=== PATIENT | female | born 1960 | race Caucasian/White ===

== ENCOUNTER 2017-11-22 16:19 | Emergency (ER) | payer OTHER ==
[~2017-11-22] VITALS: Ht 162.6 cm; Wt 90.3 kg
[~2017-11-22 16:19] MED LIST: ADAL40PEN INJ; GABA300 PO; HYDSUL200 PO; LISI20 PO; NORT25 PO; Nexium40 MG PO; Prednisone20 MG PO; RANI150 PO; Synthroid150 MCG PO
== END 2017-11-22 18:05 | disposition home or self-care (01) ==
LOC: ER 16:19
DX: S93.402A Sprain of unspecified ligament of left ankle, initial encounter (principal); I12.9 Hypertensive chronic kidney disease with stage 1 through stage 4 chronic kidney disease, or unspecified chronic kidney disease; N18.3 Chronic kidney disease, stage 3 (moderate); E03.9 Hypothyroidism, unspecified; Z88.8 Allergy status to other drugs, medicaments and biological substances; Z79.899 Other long term (current) drug therapy; X50.1XXA Overexertion from prolonged static or awkward postures, initial encounter
CPT/HCPCS: 73610

== ENCOUNTER 2019-02-13 06:49 | Day surgery (SDC) | payer OTHER ==
[~2019-02-13] VITALS: Ht 162.6 cm; Wt 97.1 kg
--- NOTE | 2019-02-13 10:07 | NUR ---
02/13/19 Elva Greene PT WAS MEDICATED WITH ORAL PAIN MEDS, 5/10 TOLERABLE PAIN. READY FOR DISCHARGE TEACHING.
== END 2019-02-13 10:30 | disposition home or self-care (01) ==
LOC: ORSCSDS 06:49
PROVIDERS: Podiatrist Foot & Ankle Surgery
PROC: 0QBL0ZZ Excision of Right Tarsal, Open Approach (ICD-10-PCS; principal; 2019-02-13 08:15)
PROC: 0LSN0ZZ Reposition Right Lower Leg Tendon, Open Approach (ICD-10-PCS; principal; 2019-02-13 08:15)
DX: M24.573 Contracture, unspecified ankle (principal); M76.61 Achilles tendinitis, right leg; I10 Essential (primary) hypertension; E03.9 Hypothyroidism, unspecified; E78.00 Pure hypercholesterolemia, unspecified; M79.7 Fibromyalgia; M06.9 Rheumatoid arthritis, unspecified; F41.8 Other specified anxiety disorders; M32.9 Systemic lupus erythematosus, unspecified; Z79.899 Other long term (current) drug therapy
CPT/HCPCS: C1713; J0690; J2250; J2704; J3010; J7120

== ENCOUNTER → 2019-04-06 | Outpatient (CLI) | payer OTHER ==
[2019-04-06 12:12] LABS: BODY FLUID RBC 0.008 M/mm3 (0-0); RBC Count, Synovial Fluid 8000 /mm3 (0-0); WBC Count, Synovial Fluid 3005 /mm3 (0-180)
[2019-04-06 12:21] LABS: Body Fluid Crystals NEG (NEGATIVE)
[2019-04-06 12:33] LABS: Appearance, Synovial Fluid Hazy (Clear); Color, Synovial Fluid Yellow (None-P Yel)
[2019-04-06 13:00] LABS: Lymphs, Synovial Fluid 57 % (0-15); Monocytes/Macrophages, Synovia 27 % (0-65); Neutrophils, Synovial Fluid 16 % (0-24)
== END | disposition home or self-care (01) ==
LOC: LAB 11:38 → LAB SHORT 11:38
PROVIDERS: Family Medicine
DX: M70.41 Prepatellar bursitis, right knee (principal)
CPT/HCPCS: 87070; 87075; 87205; 89051; 89060

== ENCOUNTER → 2019-04-20 | Outpatient (CLI) | payer OTHER ==
[2019-04-23 07:08] LABS: HPV 16 Negative (Negative); HPV 18 Positive (Negative); HPV OTHER HR TYPES Negative (Negative)
== END ==
LOC: LAB 12:05 → LAB SHORT 12:05
PROVIDERS: Registered Nurse Community Health
DX: Z12.4 Encounter for screening for malignant neoplasm of cervix (principal); N95.2 Postmenopausal atrophic vaginitis; L90.0 Lichen sclerosus et atrophicus; N90.5 Atrophy of vulva; N90.89 Other specified noninflammatory disorders of vulva and perineum
CPT/HCPCS: 87070; 87205; 87624; 87625; G0123

== ENCOUNTER → 2019-06-30 | Outpatient (CLI) | payer OTHER | LOC: LAB SHORT 08:02 → PLD 08:02 | DX: Z12.4 Encounter for screening for malignant neoplasm of cervix (principal); N84.1 Polyp of cervix uteri; R87.619 Unspecified abnormal cytological findings in specimens from cervix uteri; R87.610 Atypical squamous cells of undetermined significance on cytologic smear of cervix (ASC-US); Z78.0 Asymptomatic menopausal state | CPT/HCPCS: 88305 ==

== ENCOUNTER → 2020-07-07 | Outpatient (CLI) | payer OTHER ==
[~2020-07-07] MED LIST changes: +HYDMOR2 PO; +LEVSOD137 PO; +Percocet 5-3251 EACH PO; +XELJANZ5 MG PO
== END | disposition home or self-care (01) ==
LOC: LAB EV 17:07 → LAB SHORT 17:07
DX: L02.419 Cutaneous abscess of limb, unspecified (principal)
CPT/HCPCS: 87070; 87075; 87205

== ENCOUNTER → 2020-10-17 | Outpatient (CLI) | payer OTHER ==
[2020-10-18 09:25] LABS: Candida species (DNA Probe) Negative (NEGATIVE); G. vaginalis (DNA Probe) Negative (NEGATIVE); T. vaginalis (DNA Probe) Negative (NEGATIVE)
[2020-10-18 16:07] LABS: HPV 16 Negative (Negative); HPV 18 Negative (Negative); HPV OTHER HR TYPES Negative (Negative)
[2020-10-19 09:09] LABS: CHLAMYDIA BY NAA Negative (Negative); GONOCOCCUS BY NAA Negative (Negative); TRICH VAG BY NAA Negative (Negative)
== END | disposition home or self-care (01) ==
LOC: LAB 09:30 → LAB SHORT 09:30
PROVIDERS: Family Medicine
DX: Z01.419 Encounter for gynecological examination (general) (routine) without abnormal findings (principal)
CPT/HCPCS: 87480; 87491; 87510; 87591; 87624; 87660; 87661; G0123

== ENCOUNTER 2021-01-31 19:00 | Emergency (ER) | payer OTHER ==
[~2021-01-31] VITALS: Ht 162.6 cm; Wt 99.8 kg
[~2021-01-31 19:00] MED LIST changes: -HYDMOR2 PO; -LEVSOD137 PO; -Percocet 5-3251 EACH PO; -XELJANZ5 MG PO
[2021-01-31] MEDS ORDERED: XELJANZ5 MG PO (19:07)
[2021-01-31] MEDS ORDERED: LEVSOD137 PO (19:08)
[2021-02-01] MEDS ORDERED: Percocet 5-3251 EACH PO (00:28)
== END 2021-02-01 03:08 | disposition home or self-care (01) ==
LOC: ER 19:00
DX: S52.121A Displaced fracture of head of right radius, initial encounter for closed fracture (principal); S52.301A Unspecified fracture of shaft of right radius, initial encounter for closed fracture; S53.004A Unspecified dislocation of right radial head, initial encounter; I10 Essential (primary) hypertension; E03.9 Hypothyroidism, unspecified; E78.00 Pure hypercholesterolemia, unspecified; Z79.899 Other long term (current) drug therapy; W01.0XXA Fall on same level from slipping, tripping and stumbling without subsequent striking against object, initial encounter
CPT/HCPCS: 25520; 73070; 73090; 73100; 76000; 96361; 96361-59; 96374-59; 96375; 96375-59; 96376-59; 99152; 99284-25; A9270; J1170; J1885; J2060; J2405; J2704; J7030

== ENCOUNTER 2021-02-07 21:27 | Emergency (ER) | payer OTHER | END 2021-02-08 01:41 | disposition home or self-care (01) | LOC: ER 21:27 | DX: M79.601 Pain in right arm (principal); I12.9 Hypertensive chronic kidney disease with stage 1 through stage 4 chronic kidney disease, or unspecified chronic kidney disease; N18.9 Chronic kidney disease, unspecified; E78.00 Pure hypercholesterolemia, unspecified; E03.9 Hypothyroidism, unspecified; Z79.899 Other long term (current) drug therapy ==

== ENCOUNTER → 2021-06-28 | Outpatient (CLI) | payer OTHER ==
[~2021-06-28] MED LIST changes: +HYDMOR2 PO; +LEVSOD137 PO; +Percocet 5-3251 EACH PO; +XELJANZ5 MG PO
[2021-06-28 13:13] LABS: BASOPHILS ABSOLUTE AUTO 0.03 K/mm3 (0.00-0.23); BASOPHILS PERCENT AUTO 1 % (0-2); EOSINOPHILS ABSOLUTE AUTO 0.23 K/mm3 (0.00-0.68); EOSINOPHILS PERCENT AUTO 4 % (0-6); Hematocrit 38.5 % (33.0-51.0); Hemoglobin 12.8 g/dL (11.5-16.0); IMMATURE GRAN ABSOLUTE AUTO 0.03 K/mm3 (0.00-0.10); IMMATURE GRAN PERCENT AUTO 1 % (0-1); LYMPHOCYTES ABSOLUTE AUTO 1.12 K/mm3 (0.84-5.20); LYMPHOCYTES PERCENT AUTO 18 % (21-46); MONOCYTES ABSOLUTE AUTO 0.48 K/mm3 (0.16-1.47); MONOCYTES PERCENT AUTO 8 % (4-13); Mean Corpuscular HGB 31.2 pg (26.0-34.0); Mean Corpuscular HGB Conc 33.2 g/dL (31.5-36.5); Mean Corpuscular Volume 94 fL (80-100); Mean Platelet Volume 10.9 fL (9.1-12.4); NEUTROPHILS PERCENT AUTO 69 % (41-73); Platelet Count 220 K/mm3 (150-400); RDW Coefficient Variation 14.5 % (11.7-14.2); RDW Standard Deviation 49.6 fL (35.1-46.3); White Blood Cell Count 6.19 K/mm3 (4.00-11.30)
[2021-06-28 13:39] LABS: Bun/Creatinine Ratio 9.9 (12.0-20.0); Calcium, Blood 9.4 mg/dL (8.5-10.1); Creatinine, Blood 1.31 mg/dL (0.40-1.00); Potassium, Blood 4.1 mmol/L (3.5-5.5)
== END | disposition home or self-care (01) ==
LOC: LAB SHORT 12:24 → LAB 12:24
PROVIDERS: Internal Medicine Rheumatology; Nurse Practitioner Family
DX: M05.9 Rheumatoid arthritis with rheumatoid factor, unspecified (principal); E03.9 Hypothyroidism, unspecified; N18.30 Chronic kidney disease, stage 3 unspecified; R73.03 Prediabetes
CPT/HCPCS: 80048; 83036; 84443; 84450; 85025; 85651

== ENCOUNTER 2021-09-19 07:49 | Emergency (ER) | payer OTHER ==
[~2021-09-19] VITALS: Ht 162.6 cm; Wt 99.8 kg
[~2021-09-19 07:49] MED LIST changes: -GABA300 PO; +GABA400 PO; +XELJANZ XR11 MG PO; -XELJANZ5 MG PO
[2021-09-20] MEDS ORDERED: EUTHYROX175 MCG PO (03:05)
[2021-09-20] MEDS ORDERED: ATORVASTATIN CA20 MG PO (10:03)
== END 2021-09-19 10:09 | disposition home or self-care (01) ==
LOC: ER 07:49
DX: R10.11 Right upper quadrant pain (principal); E03.9 Hypothyroidism, unspecified; M06.9 Rheumatoid arthritis, unspecified; E78.00 Pure hypercholesterolemia, unspecified; I10 Essential (primary) hypertension; Z79.899 Other long term (current) drug therapy
CPT/HCPCS: 76705; 96374; 96375; 99284-25; A9270

== ENCOUNTER 2021-09-19 19:15 | Inpatient (IN) | payer OTHER ==
[~2021-09-19] VITALS: Ht 162.6 cm; Wt 99.8 kg
[2021-09-19 20:40] LABS: BASOPHILS ABSOLUTE AUTO 0.03 K/mm3 (0.00-0.23); BASOPHILS PERCENT AUTO 0 % (0-2); EOSINOPHILS ABSOLUTE AUTO 0.23 K/mm3 (0.00-0.68); EOSINOPHILS PERCENT AUTO 2 % (0-6); Hemoglobin 12.9 g/dL (11.5-16.0); IMMATURE GRAN ABSOLUTE AUTO 0.04 K/mm3 (0.00-0.10); IMMATURE GRAN PERCENT AUTO 0 % (0-1); LYMPHOCYTES ABSOLUTE AUTO 0.76 K/mm3 (0.84-5.20); LYMPHOCYTES PERCENT AUTO 8 % (21-46); MONOCYTES ABSOLUTE AUTO 1.08 K/mm3 (0.16-1.47); MONOCYTES PERCENT AUTO 11 % (4-13); Mean Corpuscular HGB 31.5 pg (26.0-34.0); Mean Corpuscular HGB Conc 34.9 g/dL (31.5-36.5); Mean Platelet Volume 10.5 fL (9.1-12.4); NEUTROPHILS ABSOLUTE AUTO 7.84 K/mm3 (1.96-9.15); NEUTROPHILS PERCENT AUTO 79 % (41-73); Platelet Count 156 K/mm3 (150-400); RDW Coefficient Variation 13.2 % (11.7-14.2); White Blood Cell Count 9.98 K/mm3 (4.00-11.30)
[2021-09-19 20:43] LABS: Mean Corpuscular Volume 90 fL (80-100)
[2021-09-19 21:32] LABS: Albumin, Blood 3.7 g/dL (3.4-5.0); Albumin/Globulin Ratio 0.9 (0.8-1.8); Bilirubin, Total 3.1 mg/dL (0.1-1.0); Bun/Creatinine Ratio 7.8 (12.0-20.0); Calcium, Blood 9.4 mg/dL (8.5-10.1); Creatinine, Blood 1.15 mg/dL (0.40-1.00); Globulin, Blood 3.9 g/dL (2.2-4.0); Potassium, Blood 3.2 mmol/L (3.5-5.5); Total Protein, Blood 7.6 g/dL (6.4-8.2)
--- NOTE | 2021-09-20 02:53 | NUR ---
RECEIVED PATIENT TO UNIT ABOUT 0115. ALERT AND ORIENTED X'S 4. STATED HAS SOME DISCOMFORT TO RUQ. NO ACUTE DISTRESS NOTED. ABDOMEN SOFT TO TOUCH, BS PRESENT X'4. RESPIRATIONS EVEN AND UNLABORED. TELE: S/R PER ASSISTANT PROFESSOR NURSE EDUCATION. ORIENTED PATIENT TO ROOM AND CALL DELATORRE, VERBALIZED UNDERSTANDING.
[2021-09-20] MEDS ORDERED: EUTHYROX175 MCG PO (03:05)
[2021-09-20 05:37] LABS: BASOPHILS ABSOLUTE AUTO 0.02 K/mm3 (0.00-0.23); BASOPHILS PERCENT AUTO 0 % (0-2); EOSINOPHILS ABSOLUTE AUTO 0.25 K/mm3 (0.00-0.68); EOSINOPHILS PERCENT AUTO 3 % (0-6); Hematocrit 33.4 % (33.0-51.0); IMMATURE GRAN ABSOLUTE AUTO 0.04 K/mm3 (0.00-0.10); IMMATURE GRAN PERCENT AUTO 1 % (0-1); LYMPHOCYTES ABSOLUTE AUTO 0.77 K/mm3 (0.84-5.20); LYMPHOCYTES PERCENT AUTO 10 % (21-46); MONOCYTES ABSOLUTE AUTO 0.84 K/mm3 (0.16-1.47); MONOCYTES PERCENT AUTO 11 % (4-13); Mean Corpuscular HGB 31.4 pg (26.0-34.0); Mean Corpuscular HGB Conc 32.9 g/dL (31.5-36.5); NEUTROPHILS ABSOLUTE AUTO 5.79 K/mm3 (1.96-9.15); NEUTROPHILS PERCENT AUTO 75 % (41-73); Platelet Count 137 K/mm3 (150-400); RDW Coefficient Variation 13.5 % (11.7-14.2); RDW Standard Deviation 47.3 fL (35.1-46.3); White Blood Cell Count 7.71 K/mm3 (4.00-11.30)
[2021-09-20 05:47] LABS: Mean Corpuscular Volume 95 fL (80-100)
[2021-09-20 06:05] LABS: Albumin, Blood 2.9 g/dL (3.4-5.0); Albumin/Globulin Ratio 0.8 (0.8-1.8); Bilirubin, Total 3.3 mg/dL (0.1-1.0); Bun/Creatinine Ratio 8.2 (12.0-20.0); Calcium, Blood 8.5 mg/dL (8.5-10.1); Creatinine, Blood 0.97 mg/dL (0.40-1.00); Globulin, Blood 3.7 g/dL (2.2-4.0); Potassium, Blood 3.7 mmol/L (3.5-5.5); Total Protein, Blood 6.6 g/dL (6.4-8.2)
--- NOTE | 2021-09-20 06:35 | NUR ---
SHIFT SLEPT WELL THROUGHT NIGHT. DENIED ANY FURTHER ABDOMINAL PAIN THROUGH NIGHT. NO ACUTE DISTRESS NOTED, RESPIRATIONS EVEN AND UNLABORED. NPO. SAFETY MAINTAINED, CALL DELATORRE IN REACH.
[2021-09-20 08:40] LABS: Influenza A, PCR NEGATIVE (NEGATIVE); Influenza B, PCR NEGATIVE (NEGATIVE); Resp Syncytial Virus, PCR NEGATIVE (NEGATIVE); SARS-Cov-2 (COVID-19) PCR, MMC NEGATIVE (NEGATIVE)
[2021-09-20] MEDS ORDERED: ATORVASTATIN CA20 MG PO (10:03)
--- NOTE | 2021-09-20 10:54 | NUR ---
Responding to an Advanced Directive request. Pt. was awake in bed.Spouse is present. They welcome my visit. Establish rapport. Pt. and spouse display evidence of great interest. Ask good questions. Give them material. Both Pt. and spouse verbalize gratitude to the visit and going through the resource wih them.
--- NOTE | 2021-09-20 17:33 | NUR ---
PATIENT IS AWKE,ALERT AND ORIENTED DENIES PAIN. ABDOMINAL SCAN TODAY PENDING RESULT. PER DR. AYALA PATIENT CAN HAVE WATER, JELLO AND APPLE JUICE BUT DO NOT ORDER A TRAY. PATIENT HAD A SHOWER. PATIENT IS ON TELE NSR@90. NO ACUTE DITRESS NOTED.
--- NOTE | 2021-09-21 04:57 | NUR ---
SHIFT ALERT AND ORIENTED X'S 4. NO ACUTE DISTRESS NOTED. DENIED ABDOMINAL PAIN, UPON PALPITAION CONTINUED TO DENY. SLEPT WELL THROUGH NIGHT. SAFETY MAINTAIND, CALL DELATORRE IN REACH
[2021-09-21 07:24] LABS: Source, Urine Clean Catch
[2021-09-21 07:27] LABS: Appearance, Urine Clear (Clear); Blood, Urine Neg (Neg); Color, Urine Amber (P-Yellow); Glucose Qualitative, Urine Neg (Neg); Ketones, Urine 1+ (Neg); Leukocyte Esterase, Urine 2+ (Neg); Nitrite, Urine Neg (Neg); Protein, Urine 2+ (Neg); Specific Gravity, Urine 1.025 (1.003-1.022); Urobilinogen, Urine 3+ (Normal)
[2021-09-21 07:36] LABS: Bilirubin, Urine 3+ (Neg)
[2021-09-21 07:38] LABS: Red Blood Cells, Urine 0-2 /hpf (0-2); Squamous Epithelial Cells Few /hpf (Few)
[2021-09-21 07:39] LABS: Bacteria Mod /hpf
[2021-09-21 08:52] LABS: Alanine Aminotransfer (ALT/SGP 81 U/L (12-78); Albumin, Blood 2.8 g/dL (3.4-5.0); Albumin/Globulin Ratio 0.7 (0.8-1.8); Alk Phos 298 U/L (50-136); Anion Gap 8 mmol/L (6-16); Aspartate Aminotrans (AST/SGOT 48 U/L (12-37); Bilirubin, Total 1.8 mg/dL (0.1-1.0); Blood Urea Nitrogen 9 mg/dL (8-24); Bun/Creatinine Ratio 9.8 (12.0-20.0); CO2, Blood 24 mmol/L (21-32); Calcium, Blood 8.8 mg/dL (8.5-10.1); Chloride, Blood 106 mmol/L (98-108); Creatinine, Blood 0.92 mg/dL (0.40-1.00); Globulin, Blood 3.8 g/dL (2.2-4.0); Glomerular Filtration Rate >60 (60-); Glucose, Blood 89 mg/dL (70-99); Potassium, Blood 3.8 mmol/L (3.5-5.5); Sodium, Blood 138 mmol/L (136-145); Total Protein, Blood 6.6 g/dL (6.4-8.2)
--- NOTE | 2021-09-21 16:22 | NUR ---
PATIENT IS AWAKE,ALERT AND ORIENTED TIMES THREE. COMPALIN OF ABDOMINAL PAIN 8 OUT OF 10. PATIENT MEDICATED PER MD ORDER. PATIENT COMPLETED MRCP TODAY, SHE IS PENDING RESULT BY MD. PATIENT IS WAITING ON SURGERY CONSULT, SHE REMAIN NPO. NO ACUTE DISTRESS NOTED.
--- NOTE | 2021-09-22 05:02 | NUR ---
SHIFT DENIED PAIN OR DISCOMFORT. ABDOMEN NON TENDER TO TOUCH. NO ACUTE DISTRESS NOTED, RESPIRATIONS EVEN AND UNLABORED. SLEPT WELL THROUGH NIGHT. NPO. SAFETY MAINTAINED, CALL DELATORRE IN REACH.
[2021-09-22 05:26] LABS: BASOPHILS ABSOLUTE AUTO 0.01 K/mm3 (0.00-0.23); BASOPHILS PERCENT AUTO 0 % (0-2); EOSINOPHILS ABSOLUTE AUTO 0.33 K/mm3 (0.00-0.68); EOSINOPHILS PERCENT AUTO 6 % (0-6); Hematocrit 30.9 % (33.0-51.0); Hemoglobin 10.4 g/dL (11.5-16.0); IMMATURE GRAN ABSOLUTE AUTO 0.02 K/mm3 (0.00-0.10); IMMATURE GRAN PERCENT AUTO 0 % (0-1); LYMPHOCYTES ABSOLUTE AUTO 1.39 K/mm3 (0.84-5.20); LYMPHOCYTES PERCENT AUTO 26 % (21-46); MONOCYTES ABSOLUTE AUTO 0.68 K/mm3 (0.16-1.47); MONOCYTES PERCENT AUTO 13 % (4-13); Mean Corpuscular HGB 31.5 pg (26.0-34.0); Mean Corpuscular HGB Conc 33.7 g/dL (31.5-36.5); Mean Corpuscular Volume 94 fL (80-100); Mean Platelet Volume 10.6 fL (9.1-12.4); NEUTROPHILS ABSOLUTE AUTO 3.01 K/mm3 (1.96-9.15); NEUTROPHILS PERCENT AUTO 55 % (41-73); Platelet Count 187 K/mm3 (150-400); RDW Coefficient Variation 13.8 % (11.7-14.2); RDW Standard Deviation 47.1 fL (35.1-46.3); White Blood Cell Count 5.44 K/mm3 (4.00-11.30)
[2021-09-22 05:48] LABS: Albumin, Blood 2.8 g/dL (3.4-5.0); Albumin/Globulin Ratio 0.7 (0.8-1.8); Bilirubin, Total 0.9 mg/dL (0.1-1.0); Bun/Creatinine Ratio 8.1 (12.0-20.0); Calcium, Blood 8.5 mg/dL (8.5-10.1); Creatinine, Blood 0.99 mg/dL (0.40-1.00); Potassium, Blood 3.6 mmol/L (3.5-5.5); Total Protein, Blood 6.8 g/dL (6.4-8.2)
--- NOTE | 2021-09-22 15:55 | NUR ---
PT TRANSPORTED TO [facility]. AGREE WITH PLANNED SURGERY. LUNG SOUNDS CLEAR.
--- NOTE | 2021-09-22 16:05 | NUR ---
PATIENT FLOOD ROOM, PATIENT DID NOT FALL.
--- NOTE | 2021-09-22 16:07 | NUR ---
PATIENT TRANSFER TO PRE-OP NO ACUTE DISTRESS NOTED.
--- NOTE | 2021-09-22 16:40 | NUR ---
09/22/21 Brianna Xie PT ON SCHEDULED ANTIBIOTICS AND RECIEVED PRIOR TO ARRIVAL OR OR.
--- NOTE | 2021-09-22 18:13 | NUR ---
PATIENT WAS TRANSFER TO PRE-OP, PATIENT AT BEDSIDE.
--- NOTE | 2021-09-22 19:38 | NUR ---
Returned to unit at 1915, at bedside. Alert and oriented x's 4, slow to respond. Respirations even and unlabored, no acute distress noted. 3 incisions to abdomen with dermabond RYANN, C/D/I. CECILIA drain intact to right abdomen draining sanguinous drainage. Patient resting peacefully in bed. Safety maintained, call tripathi in reach.
[2021-09-23 04:59] LABS: BASOPHILS ABSOLUTE AUTO 0.03 K/mm3 (0.00-0.23); BASOPHILS PERCENT AUTO 0 % (0-2); EOSINOPHILS PERCENT AUTO 0 % (0-6); Hematocrit 34.5 % (33.0-51.0); Hemoglobin 11.4 g/dL (11.5-16.0); IMMATURE GRAN ABSOLUTE AUTO 0.06 K/mm3 (0.00-0.10); IMMATURE GRAN PERCENT AUTO 1 % (0-1); LYMPHOCYTES ABSOLUTE AUTO 0.54 K/mm3 (0.84-5.20); LYMPHOCYTES PERCENT AUTO 7 % (21-46); MONOCYTES ABSOLUTE AUTO 0.59 K/mm3 (0.16-1.47); MONOCYTES PERCENT AUTO 7 % (4-13); Mean Corpuscular HGB 31.1 pg (26.0-34.0); Mean Corpuscular Volume 94 fL (80-100); Mean Platelet Volume 10.1 fL (9.1-12.4); NEUTROPHILS ABSOLUTE AUTO 7.03 K/mm3 (1.96-9.15); NEUTROPHILS PERCENT AUTO 85 % (41-73); Platelet Count 223 K/mm3 (150-400); RDW Coefficient Variation 13.5 % (11.7-14.2); RDW Standard Deviation 47.1 fL (35.1-46.3); Red Blood Cell Count 3.66 M/mm3 (3.80-5.20); White Blood Cell Count 8.25 K/mm3 (4.00-11.30)
[2021-09-23 05:18] LABS: Alanine Aminotransfer (ALT/SGP 76 U/L (12-78); Albumin, Blood 2.9 g/dL (3.4-5.0); Albumin/Globulin Ratio 0.7 (0.8-1.8); Alk Phos 268 U/L (50-136); Anion Gap 7 mmol/L (6-16); Aspartate Aminotrans (AST/SGOT 47 U/L (12-37); Bilirubin, Total 0.7 mg/dL (0.1-1.0); Blood Urea Nitrogen 11 mg/dL (8-24); Bun/Creatinine Ratio 12.5 (12.0-20.0); CO2, Blood 25 mmol/L (21-32); Calcium, Blood 8.8 mg/dL (8.5-10.1); Chloride, Blood 105 mmol/L (98-108); Creatinine, Blood 0.88 mg/dL (0.40-1.00); Globulin, Blood 4.3 g/dL (2.2-4.0); Glomerular Filtration Rate >60 (60-); Glucose, Blood 107 mg/dL (70-99); Potassium, Blood 4.2 mmol/L (3.5-5.5); Sodium, Blood 137 mmol/L (136-145); Total Protein, Blood 7.2 g/dL (6.4-8.2)
--- NOTE | 2021-09-23 05:31 | NUR ---
ALERT AND ORIENTED X'S 4. MEDICATED WITH VICODIN X'S 1 DUE TO C/O ABDOMINAL PAIN, EFFECTIVE RELIEF. BOWEL SOUNDS PRESENT X'S 4. ABDOMINAL INCISIONS WELL APPROIMATED. CECILIA DRAIN DRAINED 45ML OF SANGUINOUS FLUID, DRESSING C/D/I. SLEPT WELL THROUGH NIGHT. SAFETY MAINTAINED, CALL DELATORRE IN REACH.
[2021-09-23] MEDS ORDERED: POLYETHYLENE G500 G1 PO (15:28)
--- NOTE | 2021-09-23 16:06 | NUR ---
PATIENT DISCHARGED TO HOME ACCOMPAINED BY SPOUSE. IV SALINE LOCK X 2 REMOVED WITHOUT INCIDENT. PT AND SPOUSE SHOWN HOW TO EMPTY CECILIA DRAIN BULB; DRAIN ATTACHED TO PT'S SHIRT WITH SAFETY PIN TO PREVENT ACCIDENTAL PULLING OR REMOVAL. PT VERBALIZED UNDERSTANDING OF ALL D/C INSTRUCTIONS; SHE WILL MAKE HER F/U APPOINTMENTS ON SATURDAY. GAVE DRAIN SPONGES AND MICROPORE TAPE FOR DRAIN. PT WAS HANDED HARD RX FOR PERCOCET. OFF UNIT VIA W/C AT 1558. NO BELONGINGS LEFT BEHIND IN ROOM.
== END 2021-09-23 16:01 | disposition home or self-care (01) | DRG 418 ==
LOC: ER 19:15 → MEDS 09-20 01:22
PROVIDERS: Internal Medicine; Physician Assistant; Surgery; ADMIT Internal Medicine
PROC: 0FT44ZZ Resection of Gallbladder, Percutaneous Endoscopic Approach (ICD-10-PCS; principal; 2021-09-22 14:15)
DX: K85.10 Biliary acute pancreatitis without necrosis or infection (principal); K81.0 Acute cholecystitis; K82.1 Hydrops of gallbladder; Z20.822 Contact with and (suspected) exposure to COVID-19; E86.0 Dehydration; K59.00 Constipation, unspecified; E87.6 Hypokalemia; M06.9 Rheumatoid arthritis, unspecified; I12.9 Hypertensive chronic kidney disease with stage 1 through stage 4 chronic kidney disease, or unspecified chronic kidney disease; N18.30 Chronic kidney disease, stage 3 unspecified; E03.9 Hypothyroidism, unspecified; E78.00 Pure hypercholesterolemia, unspecified; G47.33 Obstructive sleep apnea (adult) (pediatric); M79.7 Fibromyalgia; Z79.899 Other long term (current) drug therapy
CPT/HCPCS: 0241U; 36415; 74181; 78227; 80053; 81001; 83690; 85025; 87086; 96374; 96375; 99284; A9270; A9537; J0690; J0696; J1100; J1170; J1650; J1885; J2250; J2370; J2405; J2704; J3010; J7030; J7120

== ENCOUNTER → 2022-05-17 | Outpatient (CLI) | payer OTHER ==
[~2022-05-17] MED LIST changes: +ATORVASTATIN CA20 MG PO; +EUTHYROX175 MCG PO; +POLYETHYLENE G500 G1 PO
== END | disposition home or self-care (01) ==
LOC: LAB 13:59 → LAB SHORT 13:59
DX: R63.5 Abnormal weight gain (principal)
CPT/HCPCS: 83036

== ENCOUNTER → 2022-12-19 | Outpatient (CLI) | payer OTHER ==
[2022-12-19 18:14] LABS: BASOPHILS ABSOLUTE AUTO 0.02 K/mm3 (0.00-0.23); BASOPHILS PERCENT AUTO 1 % (0-2); EOSINOPHILS ABSOLUTE AUTO 0.25 K/mm3 (0.00-0.68); EOSINOPHILS PERCENT AUTO 6 % (0-6); Hematocrit 38.4 % (33.0-51.0); Hemoglobin 12.4 g/dL (11.5-16.0); IMMATURE GRAN ABSOLUTE AUTO 0.02 K/mm3 (0.00-0.10); IMMATURE GRAN PERCENT AUTO 1 % (0-1); LYMPHOCYTES ABSOLUTE AUTO 0.93 K/mm3 (0.84-5.20); LYMPHOCYTES PERCENT AUTO 21 % (21-46); MONOCYTES ABSOLUTE AUTO 0.48 K/mm3 (0.16-1.47); MONOCYTES PERCENT AUTO 11 % (4-13); Mean Corpuscular HGB 30.8 pg (26.0-34.0); Mean Corpuscular HGB Conc 32.3 g/dL (31.5-36.5); Mean Corpuscular Volume 96 fL (80-100); Mean Platelet Volume 11.6 fL (9.1-12.4); NEUTROPHILS ABSOLUTE AUTO 2.69 K/mm3 (1.96-9.15); NEUTROPHILS PERCENT AUTO 61 % (41-73); Platelet Count 191 K/mm3 (150-400); RDW Coefficient Variation 13.8 % (11.7-14.2); RDW Standard Deviation 48.9 fL (35.1-46.3); Red Blood Cell Count 4.02 M/mm3 (3.80-5.20); White Blood Cell Count 4.39 K/mm3 (4.00-11.30)
[2022-12-19 19:11] LABS: Bun/Creatinine Ratio 5.9 (12.0-20.0); Calcium, Blood 8.9 mg/dL (8.5-10.1); Creatinine, Blood 1.18 mg/dL (0.40-1.00); Potassium, Blood 4.1 mmol/L (3.5-5.5); Thyroid Stimulating Hormone 0.973 uIU/mL (0.360-4.800)
[2022-12-19 19:55] LABS: Albumin, Blood 4.1 g/dL (3.4-5.0); Albumin/Globulin Ratio 1.1 (0.8-1.8); Bilirubin, Total 0.5 mg/dL (0.1-1.0); Creatinine, Blood 1.17 mg/dL (0.40-1.00); Globulin, Blood 3.9 g/dL (2.2-4.0); Potassium, Blood 4.1 mmol/L (3.5-5.5)
== END | disposition home or self-care (01) ==
LOC: LAB SHORT 17:19
PROVIDERS: Internal Medicine Rheumatology; Nurse Practitioner Family
DX: N18.30 Chronic kidney disease, stage 3 unspecified (principal); E03.9 Hypothyroidism, unspecified; M05.9 Rheumatoid arthritis with rheumatoid factor, unspecified
CPT/HCPCS: 80048; 80053; 84443; 85025; 85651